=== PATIENT | male | born 1965 | race Caucasian/White ===

== ENCOUNTER 2020-04-06 01:58 | Emergency (ER) | payer BC, SELFPAY ==
[2020-04-06 03:01] LABS: #Eosinphils 0.1 thou/uL (0.0-0.7); #Lymphocytes 2.3 thou/uL (1.20-3.40); #Monocytes 0.4 thou/uL (0.11-0.59); #Neutrophils 4.4 thou/uL (1.40-6.50); %Basophils 0.4 % (0.0-1.0); %Eosinophils 1.8 % (0.0-10.0); %Lymphocytes 31.9 % (21.0-51.0); %Monocytes 5.1 % (0.0-10.0); %Neutrophils 60.9 % (42.0-75.0); Hemoglobin 15.3 g/dL (14.0-18.0); Mean Corpuscular HGB CONC 34.1 g/dL (32.0-36.0); Mean Corpuscular Hemoglobin 29.8 pg (27.0-31.0); Mean Corpuscular Volume 87.3 fL (78.0-98.0); Mean Platelet Volume 6.9 fL (7.4-10.4); Platelet Count 263 thou/uL (130-400); RBC Distribution Width 11.8 % (11.5-14.5); Red Blood Cell (RBC) Count 5.16 mill/uL (4.70-6.10); White Blood Cell (WBC) Count 7.3 thou/uL (4.8-10.8)
[2020-04-06 03:20] LABS: ALT (SGPT) 30 U/L (8-55); AST (SGOT) 18 U/L (5-34); Albumin 4.2 g/dL (3.5-5.0); Alkaline Phosphatase 80 U/L (40-110); Anion Gap 15 mmol/L (10-20); BUN (Urea Nitrogen) 16 mg/dL (8.4-25.7); Calc. Creatinine Clearance 0 mL/min (70-130); Calcium 8.6 mg/dL (7.8-10.44); Carbon Dioxide 23 mmol/L (22-29); Chloride 105 mmol/L (98-107); Globulin 2.5 g/dL (2.4-3.5); Glucose 120 mg/dL (70-105); Lipase 23 U/L (8-78); Potassium 3.8 mmol/L (3.5-5.1); Protein, Total 6.7 g/dL (6.0-8.3); Sodium 139 mmol/L (136-145)
[2020-04-06 04:04] LABS: Bilirubin Negative (Negative); Blood, Urine 2+ (Negative); Clarity Clear (Clear); Glucose, Urine (Dipstick) Normal (Negative); Ketone, Urine 20 mg/dL (Negative); Leukocyte 25 Leu/uL (Negative); Nitrite Negative (Negative); Protein, Urine (Dipstick) 20 mg/dL (Neg-Trace); RBC/HPF Greater than 50 HPF (0-3); Specific Gravity, Urine 1.021 (1.002-1.036); Squamous Epithelial None Seen HPF (0-3); Urobilinogen Normal mg/dL (Less than 2); pH, Urine 5.5 (5.0-9.0)
[2020-04-06 04:06] LABS: Bacteria/HPF Rare-Few HPF (None Seen)
[2020-04-06] MEDS ORDERED: HYDROmorphone 0.5 MG/0.5 ML SYRINGE ONE ×3 (04:46→07:06)
[2020-04-06] MEDS ORDERED: Ketorolac Tromethamine 30 MG/ML VIAL ONE (04:46)
[2020-04-06] MEDS ORDERED: Ondansetron PF 4 MG/2 ML Vial ONE ×2 (04:58→07:16)
--- NOTE | 2020-04-06 07:52 | CT ---
PRELIMINARY REPORT/[facility]/AFTER HOURS PROCEDURE CT ABDOMEN AND PELVIS WITHOUT INTRAVENOUS CONTRAST: CLINICAL HISTORY: Right flank pain. TECHNIQUE: Axial computed tomography images of the abdomen and pelvis without intravenous contrast. CONTRAST: None. COMPARISON: None. FINDINGS: Imaged intrathoracic contents are unremarkable. Kidneys are normal in size, axis and position. Mild left hydronephrosis is due to a proximal ureteral 5 mm stone. No right hydronephrosis. There is a nonobstructive right collecting system 4 mm curvilinear stone. No stones are seen within the urinary bladder. The liver, gallbladder, pancreas, spleen, and adrenal glands demonstrate an unremarkable noncontrast appearance. Hollow enteric organs are normal in course and caliber. Appendix is normal. No intra-abdominal free a ir/fluid or lymphadenopathy. Aorta is normal in course and caliber. Superficial soft tissues are unremarkable. No acute or aggressive appearing skeletal findings. IMPRESSION: Mild left hydronephrosis is due to a proximal ureteral 5 mm stone. ELECTRONICALLY SIGNED BY: Chet Vazquez MD Apr 06, 2020 5:04:30 AM LINE SERVICER This report is intended for review by the ordering physician only, in accordance of law. If you recei ve this report in error, please call [facility] at [phone]. FINAL REPORT CT ABDOMEN AND PELVIS WITHOUT IV CONTRAST: EMERGENCY AFTER HOURS EXAM 04/06/2020 4:36 a.m. FINDINGS: Multiple bilateral nonobstructing renal calculi. Moderately obstructing 0.5 x 0.7 cm proximal mid left ureteral calculus. This report agrees with the preliminary report. CODE QA Transcribed Date/Time: 04/06/2020 9:00 AM
[2020-04-06] MEDS ORDERED: Ondansetron ODT 4 MG TAB ONE (08:35)
== END 2020-04-06 08:45 | disposition home or self-care (01) ==
LOC: ERS 01:58
DX: N13.2 Hydronephrosis with renal and ureteral calculous obstruction (principal)
CPT/HCPCS: 36415; 74176; 80053; 81003; 81015; 83690; 85025; 87086; 96374; 96375; 96376; J1170; J1885; J2405; Q0162

== ENCOUNTER 2020-04-06 09:57 | Emergency (ER) | payer SELFPAY ==
[2020-04-06] MEDS ORDERED: Ketorolac Tromethamine 30 MG/ML VIAL ONE (10:33)
[2020-04-06] MEDS ORDERED: Promethazine HCl 25 MG/ML VIAL ONE (10:56)
== END 2020-04-06 11:45 | disposition home or self-care (01) ==
LOC: ERS 09:57
DX: N20.0 Calculus of kidney (principal)
CPT/HCPCS: 96365; 96375; J1885; J2550

== ENCOUNTER 2020-04-06 16:12 | Emergency (ER) | payer SELFPAY ==
[~2020-04-06 16:12] MED LIST: Dexamethasone 20 MG/5 ML VIAL ONE; Ondansetron PF 4 MG/2 ML Vial ONE; PROPOFOL 200 MG/20 ML VIAL ONE; Succinylcholine 200 MG/10 ml SYRINGE FS ONE; diphenhydrAMINE 50 MG/ML VIAL ONE; ePHEDrine 50 MG/ML VIAL ONE
[2020-04-06 18:38] LABS: #Lymphocytes 1.2 thou/uL (1.20-3.40); #Monocytes 0.6 thou/uL (0.11-0.59); #Neutrophils 7.3 thou/uL (1.40-6.50); %Basophils 0.1 % (0.0-1.0); %Eosinophils 0.1 % (0.0-10.0); %Lymphocytes 12.9 % (21.0-51.0); %Monocytes 6.5 % (0.0-10.0); %Neutrophils 80.4 % (42.0-75.0); Hemoglobin 14.2 g/dL (14.0-18.0); Mean Corpuscular HGB CONC 33.9 g/dL (32.0-36.0); Mean Corpuscular Hemoglobin 29.9 pg (27.0-31.0); Mean Corpuscular Volume 88.2 fL (78.0-98.0); Platelet Count 221 thou/uL (130-400); RBC Distribution Width 11.8 % (11.5-14.5); Red Blood Cell (RBC) Count 4.73 mill/uL (4.70-6.10); White Blood Cell (WBC) Count 9.1 thou/uL (4.8-10.8)
[2020-04-06] MEDS ORDERED: Ondansetron PF 4 MG/2 ML Vial ONE (18:44)
[2020-04-06] MEDS ORDERED: Ketorolac Tromethamine 30 MG/ML VIAL ONE (18:44)
[2020-04-06 18:55] LABS: ALT (SGPT) 23 U/L (8-55); AST (SGOT) 15 U/L (5-34); Albumin 3.8 g/dL (3.5-5.0); Alkaline Phosphatase 71 U/L (40-110); Anion Gap 14 mmol/L (10-20); BUN (Urea Nitrogen) 17 mg/dL (8.4-25.7); Bilirubin, Total 0.8 mg/dL (0.2-1.2); Calc. Creatinine Clearance 0 mL/min (70-130); Calcium 8.1 mg/dL (7.8-10.44); Carbon Dioxide 21 mmol/L (22-29); Chloride 111 mmol/L (98-107); Globulin 2.2 g/dL (2.4-3.5); Glucose 94 mg/dL (70-105); Potassium 3.9 mmol/L (3.5-5.1); Sodium 142 mmol/L (136-145)
[2020-04-06 19:43] LABS: Bacteria/HPF None Seen HPF (None Seen); Bilirubin Negative (Negative); Blood, Urine 2+ (Negative); Clarity Clear (Clear); Glucose, Urine (Dipstick) Normal (Negative); Ketone, Urine 40 mg/dL (Negative); Leukocyte Negative Leu/uL (Negative); Nitrite Negative (Negative); Protein, Urine (Dipstick) 10 mg/dL (Neg-Trace); Squamous Epithelial None Seen HPF (0-3); Urobilinogen Normal mg/dL (Less than 2); pH, Urine 5.5 (5.0-9.0)
[2020-04-06] MEDS ORDERED: Iothalamate Meglumine 60% 50 ML VIAL FS ONE (20:09)
[2020-04-06] MEDS ORDERED: Fentanyl 100 MCG/2 ML VIAL ONE (20:11)
[2020-04-06] MEDS ORDERED: Morphine 4 MG/ML VIAL ONE (20:40)
[2020-04-06] MEDS ORDERED: Meperidine HCl/PF 25 MG/ML VIAL ONE (21:34)
--- NOTE | 2020-04-06 21:53 | RAD ---
EXAM: Retrograde IVP HISTORY: Left ureteral calcification COMPARISON: CT abdomen/pelvis 04/06/2020 FINDINGS/IMPRESSION: Limited intraoperative fluoroscopic views of the retrograde IVP were submitted f or interpretation. The calcification seen on CT is seen on the first image adjacent to the left aspect of the L4 vertebral body. Subsequent images show placement of a double-J ureteral stent and th e calcification is no longer visualized. There is no evidence of hydronephrosis. No obvious filling defects are seen.
--- NOTE | 2020-04-06 23:58 | OP ---
DATE OF PROCEDURE: 04/06/2020 PREOPERATIVE DIAGNOSIS: Left ureteral stone. POSTOPERATIVE DIAGNOSIS: Left ureteral stone. PROCEDURES PERFORMED: Cysto, left retrograde, left stent. ANESTHESIA: General. ESTIMATED BLOOD LOSS: Less than 50 mL. DRAINS PLACED: Left 4.8 x 24 cm double-J stent without a string attached. FINDINGS: There was a left mid ureteral stone. We could see adjacent to I think it was L3 transverse process. The stent was easily passed by it. DESCRIPTION OF PROCEDURE: After obtaining written and verbal consent from the patient, after receiving IV Ancef, he was taken to the operating suite. He was given a general anesthetic and oral obturator intubation, placed in the dorsal lithotomy position, sterilely prepped and draped. Cystoscopy was performed with a 22-Yi sheath, this was well lubricated, passed under direct vision through the male urethra into the urinary bladder with the aid of a 30-degree lens and video camera and monitor. The bladder was filled and emptied as it was examined with 30 and 70-degree lens. Using a 30-degree lens, we brought in a cone-tip catheter, flushed with contrast, placed in the left ureteral orifice. Contrast was injected in a retrograde manner. He had minimal hydronephrosis. Guidewire was then fed by the stone, and then a stent was placed over the guidewire and pushed up into place with aid of a pusher, so its proximal end coiled in the renal pelvis and its distal end coiled in the bladder when the wire was removed. The patient was then awakened and extubated and taken by stretcher to the recovery room. Job ID: [id number]
--- NOTE | 2020-04-07 00:32 | CON ---
DATE OF CONSULTATION: 04/06/2020 HISTORY OF PRESENT ILLNESS: This is a 55-year-old white male with 2 to 3 days of left flank pain. He is actually I think been in the ER three times. Had a CAT scan early this morning that showed a 5 mm left proximal third ureteral stone. He came back with vomiting and then came back this evening again with pain that he could not control. He has not had a repeat CT scan. His creatinine is 1.4, it is up a little bit from earlier today, I think probably just from vomiting, not running a fever or chills. He has had a prior stone a few years ago, had ureteroscopy by Dr. Hopkins and identified itself was Dr. Hopkins's patient. ALLERGIES: HE HAS NO KNOWN DRUG ALLERGIES. MEDICATIONS: He takes no routine medicines, but he does have a prescription for hydrocodone and antiemetic. SURGICAL HISTORY: Includes only prior . MEDICAL HISTORY: Includes only stones. FAMILY HISTORY: He has a family history of prostate cancer. SOCIAL HISTORY: He does not drink. Does not smoke. PHYSICAL EXAMINATION: HEENT: Negative. NECK: Negative. LUNGS: Clear. HEART: Without murmur. ABDOMEN: Soft, left costovertebral angle tenderness. He is circumcised. No lesions. Testicles are descended. No mass. No tenderness. EXTREMITIES: No clubbing, cyanosis, or edema. He will receive Ancef examination grader because of his pain, and he will be taken to the OR for emergent stent and he go home after that. Job ID: [id number]
== END 2020-04-06 20:56 | disposition admitted as inpatient to this hospital (09) ==
LOC: ERS 16:12
DX: N20.2 Calculus of kidney with calculus of ureter (principal); R11.2 Nausea with vomiting, unspecified
CPT/HCPCS: 74420; 96365; 96375; J0690; J1100; J1200; J1885; J2175; J2270; J2405; J2704; J3010; J3490

== ENCOUNTER 2020-04-14 07:30 | Day surgery (SDC) | payer OTHER ==
[2020-04-10 10:34] VITALS: BMI 21.5
[2020-04-14] MEDS ORDERED: Midazolam HCl 2 mg/2 ml Vial ONE (10:26)
[2020-04-14] MEDS ORDERED: Fentanyl 100 MCG/2 ML VIAL ONE (10:26)
[2020-04-14] MEDS ORDERED: Famotidine/PF 20 mg/2ml Vial ONE (10:26)
[2020-04-14] MEDS ORDERED: Metoclopramide HCl 10 MG/2 ML VIAL ONE (10:47)
[2020-04-14] MEDS ORDERED: Lidocaine 1% PF 5 ML VIAL ONE (10:47)
[2020-04-14] MEDS ORDERED: ePHEDrine 50 MG/ML VIAL ONE (10:47)
[2020-04-14] MEDS ORDERED: Ondansetron PF 4 MG/2 ML Vial ONE (10:47)
[2020-04-14] MEDS ORDERED: PROPOFOL 200 MG/20 ML VIAL ONE (10:47)
[2020-04-14] MEDS ORDERED: Dexamethasone 20 MG/5 ML VIAL ONE (10:47)
[2020-04-14] MEDS ORDERED: Iothalamate Meglumine 60% 50 ML VIAL FS ONE (11:11)
--- NOTE | 2020-04-14 13:16 | RAD ---
EXAM: XR IVP Retrograde PROVIDED CLINICAL HISTORY: Left stone retrieval. FINDINGS/IMPRESSION: Single intraoperative fluoroscopic image left upper quadrant of the abdomen is submitted. Image demon strates a ureteral stent in place with opacification of the left renal collecting system. Additional imaging was not provided. Correlation with intraoperative findings is recommended. Fluoroscopy: Time-4 minutes 36 seconds Dose-19 mGy
[2020-04-14] MEDS ORDERED: HYDROcodone/Acetaminophen 5/325 mg Tablet ONE (13:49)
--- NOTE | 2020-04-14 15:20 | OP ---
DATE OF PROCEDURE: 04/14/2020 PREOPERATIVE DIAGNOSIS: Left proximal ureteral stone. POSTOPERATIVE DIAGNOSIS: Left proximal ureteral stone. PROCEDURE PERFORMED: Left rigid and flexible ureteroscopy with laser lithotripsy and stone retrieval. ANESTHETIC: General. ESTIMATED BLOOD LOSS: Less than 100 mL. FINDINGS: He had at least 5 mm in size stone in the proximal left ureter, appeared to be in roughly the same place that it was after a stent was placed. He also has a generally narrowed ureter. The stone was sent for stone analysis. It was sent in pieces. He had a 4.8 x 24 cm double-J stent placed, the string was not left attached, we are going to leave the stent in for probably a month. He had a little extravasation of contrast at the site where the stone was. We will leave the stent in for probably about 4 weeks before removing it. DESCRIPTION OF PROCEDURE: After obtaining written and verbal consent from the patient after receiving IV Ancef, he was taken to the operating suite. He was placed in a supine position on the treatment table. PlexiPulses were placed on his lower extremities and turned on. He was given a general anesthetic and oral obturator intubation. He was placed in the dorsal lithotomy position and then the table was positioned, so we could bring the C-arm in underneath it for imaging. The C-arm showed the stone present in the same location as it was when the stent was placed a week or so ago. He was sterilely prepped and draped. Cystoscopy was performed with a 22-Hungarian sheath. This was well lubricated and passed under direct vision through the male urethra into the urinary bladder with aid of a 30-degree lens and video camera and monitor. The bladder was filled and emptied a number of times and examined with both the 30 and the 70-degree lens. The stent was grasped and brought out through the urethral meatus. A guidewire was fed through it, but could not feed through it completely, and for this reason, the stent was removed and then a guidewire was just advanced up cystoscopically with a 5-Hungarian Pollack catheter and we injected contrast. Distal ureter, mid ureter, and proximal ureter looked normal. The stone was in the proximal ureter and it was causing some obstruction of the contrast and that he was still slightly hydronephrotic above it and contrast although going by it. I did dilate underneath it. We fed a guidewire by the stone up into the renal pelvis. We then removed the Pollack catheter, removed the cystoscope, and brought in a small caliber graduated rigid ureteroscope, well lubricated and passed under direct vision with the aid of a video camera and monitor. It was passed through the male urethra into the bladder and up the left ureter and then up to the level where the stone was. We used a Holmium laser to break the stone up into multiple fragments and then we used a Nitinol basket to remove the largest of the fragment. There looked to be one more proximal to it, so we removed this when we went back up with the rigid scope, but we did not see any other fragments there. We went actually up to the UPJ and saw no stones in this region. This reason, we removed the ureteroscope, backloaded our guidewire and passed a Pollack catheter up and injected contrast. There was a filling defect in the renal pelvis that was felt to probably be the piece of the proximal stone. For this reason, we went ahead and brought in a dual-lumen ureteral catheter, advanced over a guidewire up to about mid ureter and fed a stiff blue guidewire through this and up into the renal pelvis. We then came in and brought in our flexible ureteroscope and attempted to pass this over a stiff blue wire, but were unsuccessful. It would not easily intubate through the urethral meatus, so we did bring in the ureteral sheath obturator. The sheath went up to about mid ureter. We then placed this sheath of the obturator, well lubricated, passed up. It went up fairly easily until it was about a centimeter below the pelvic inlet in the renal vessels. It was tight in this region, so we did not force that matter, but we removed the obturator, leaving the blue guidewire in place. We then brought in a flexible ureteroscope, passed it over the blue guidewire, and it easily went up into the renal pelvis. Then, we examined the renal pelvis after removing the blue wire and we found 2 stone fragments that were both basketed and removed. The larger of the fragments broke into 2 pieces as it was entering the ureteral sheath and we ended up lasering this one in the ureter to make it a little bit smaller before we basketing it and removing it completely. So, 2 stones were seen in the renal pelvis, actually one of them fallen into the lower calyceal system and one was in the renal pelvis and these were removed. I did not see any other stones present on his CAT scan and did not show any other stones to be present on the 06 of April. At this point, we looked at the ureter in its entirety as we backed out the flexible ureteroscope and then the ureteral sheath. I did not see any other stones to be present. I did not see any evidence of ureteral injury. I did not see any other abnormality. As mentioned, his ureter I think was just somewhat narrowed. He did have a little trouble with ureteroscopy 8 years ago, developing some pain postoperatively, requiring a stent replacement, so he may just have some small caliber ureters. We could not pass the ureteral sheath past the pelvic inlet on him. At this point, we backloaded our green guidewire through our cystoscope, passed a Pollack catheter up in the region of renal pelvis, removed the wire, injected contrast. There was no extravasation in the renal collecting system, but there was a little extravasation of contrast right where the stone had been in the proximal ureter and there was no distal extravasation. A guidewire was fed back up, and then over this, we passed a 4.8 x 24 cm double-J stent. Because of the small amount of contrast extravasation, we did not leave a string on it. We will leave the stent in for probably 3 to 4 weeks. The stent was placed over a guidewire and pushed up into place with the pusher, so its proximal end coiled in the renal pelvis and its distal end coiled in the bladder when the wire was removed. The bladder was drained. The instruments were removed. He was then awakened, extubated, and taken by verena to recovery room. Job ID: [id number]
[2020-04-18 20:36] LABS: CA Oxalate Dihydrate 20 % (.); CA Oxalate Monohydrate 80 % (.); Color Brown (.); Stone Weight 38 mg (.)
== END 2020-04-14 14:35 | disposition home or self-care (01) ==
LOC: SDC 07:30
PROVIDERS: ATTEND Urology
PROC: 0T778DZ Dilation of Left Ureter with Intraluminal Device, Via Natural or Artificial Opening Endoscopic (ICD-10-PCS; principal; 2020-04-14)
PROC: 0TC78ZZ Extirpation of Matter from Left Ureter, Via Natural or Artificial Opening Endoscopic (ICD-10-PCS; principal; 2020-04-14)
DX: N20.1 Calculus of ureter (principal); N13.5 Crossing vessel and stricture of ureter without hydronephrosis; Z79.2 Long term (current) use of antibiotics
CPT/HCPCS: 74420; 82365; 88300; J0690; J1100; J2250; J2405; J2704; J2765; J3010; J3490; S0028